=== PATIENT | female | born 1960 | race Caucasian/White ===

== ENCOUNTER 2021-02-19 09:09 | Day surgery (SDC) | payer BC ==
[2021-02-18 11:49] VITALS: BMI 20.7
[~2021-02-19 09:09] MED LIST: LACTATED RINGERS 1,000 ML IV SCH
[2021-02-19] MEDS ORDERED: LACTATED RINGERS 1,000 ML IV ONE (09:21)
[2021-02-19 09:25] VITALS: TEMP 97.5
[2021-02-19 09:33] LABS: Glucose,Whole Blood 107 mg/dL (75-99)
[2021-02-19] MEDS ORDERED: PROPOFOL 10 MG/ML 20 ML VIAL IV ONE (10:29)
[2021-02-19] MEDS ORDERED: ePHEDrine SULFATE/0.9% NACL/PF 50 MG/5 ML SYRINGE IV ONE (10:29)
[2021-02-19 11:22] VITALS: RESP 16
--- NOTE | 2021-02-19 11:22 | P.PCN ---
Date of Procedure: 02/19/21 Description of Procedure: BRIEF HISTORY: Patient is a 60-year-old female presenting for outpatient colonoscopy for follow-up of fecal abnormalities/positive Cologuard. No prior colonoscopy. No change in bowel habits or blood per rectum. No family history of colon cancer. PROCEDURE PERFORMED: Colonoscopy with polypectomy. PREOPERATIVE DIAGNOSIS: Positive Cologuard, other fecal abnormalities, no prior colonoscopy. ESTIMATED BLOOD LOSS: Minimal. IV sedation per Anesthesia. PROCEDURE: After informed consent was obtained, the patient, was brought into the endoscopy unit. IV sedation was administered by Anesthesia under continuous monitoring. Digital rectal examination was normal. Initially the Olympus CF-190 flexible video colonoscope was then inserted in the rectum, gradually advanced into the cecum without any difficulty. Careful examination was performed as the scope was gradually being withdrawn. Ileocecal valve and the appendiceal orifice were visualized and appeared normal. Prep was excellent. Mucosa of the cecum, ascending colon, transverse colon, descending colon, sigmoid colon, and rectum appeared normal. A flat 3 cm rectal polyp 3 cm from the anal verge and tubulovillous-appearing was removed in piecemeal fashion with a combination of cold and hot snare polypectomy. Retroflexion was performed in the rectum and no lesions were seen, low-grade internal hemorrhoids seen. The patient tolerated the procedure well. IMPRESSION: Piecemeal resection of a large flat tubulovillous-appearing rectal polyp. Internal hemorrhoids. RECOMMENDATIONS: Findings of this examination were discussed with the patient and her family. Okay to resume diet. Okay to resume medications. Await pathology from polypectomy. Follow-up in the GI clinic in 1 week for results of polypectomy, patient will require repeat colonoscopy in 3 months for piecemeal resection of a polyp or referral to a tertiary center for evaluation by an advanced endoscopist for large polyp resection.
[2021-02-19 11:37] VITALS: BP 123/70; PULSE 81
== END 2021-02-19 12:02 | disposition home or self-care (01) ==
LOC: ORWHC2ENDO 09:09
PROVIDERS: ATTEND Internal Medicine
DX: D37.5 Neoplasm of uncertain behavior of rectum (principal); K64.8 Other hemorrhoids; E11.9 Type 2 diabetes mellitus without complications; Z90.89 Acquired absence of other organs; Z98.890 Other specified postprocedural states; Z88.0 Allergy status to penicillin; Z79.84 Long term (current) use of oral hypoglycemic drugs
CPT/HCPCS: 88305; 45385; J2704